=== PATIENT | female | born 2000 | race Caucasian/White ===

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

== ENCOUNTER → 2018-08-04 | Outpatient (CLI) | payer BC ==
[~2018-08-04] MED LIST: DEPO-PROVE400 MG/1 M IM; ZOLOFT 25MG25 MG PO
== END ==
LOC: COL.CARD 08-03 07:30
DX: R00.2 Palpitations (principal)

== ENCOUNTER → 2022-03-19 | Outpatient (CLI) | payer BC ==
[2022-03-20 16:05] LABS: LYME DISEASE ANTIBODIES Negative (Negative)
== END ==
LOC: COL.LAB 11:02
PROVIDERS: Psychiatry & Neurology Neurology
DX: E55.9 Vitamin D deficiency, unspecified (principal); E53.9 Vitamin B deficiency, unspecified; E61.1 Iron deficiency; E07.9 Disorder of thyroid, unspecified; E53.1 Pyridoxine deficiency; E53.8 Deficiency of other specified B group vitamins; E61.2 Magnesium deficiency

== ENCOUNTER → 2022-04-13 | Outpatient (CLI) | payer BC | LOC: MHCPAIN 10:22 | DX: M25.562 Pain in left knee (principal); M25.662 Stiffness of left knee, not elsewhere classified; M54.2 Cervicalgia; M79.18 Myalgia, other site; R20.2 Paresthesia of skin | CPT/HCPCS: G0463 ==

== ENCOUNTER → 2022-04-15 | Outpatient (CLI) | payer BC | LOC: MHCPAIN 12:51 | DX: M79.18 Myalgia, other site (principal); M25.512 Pain in left shoulder | CPT/HCPCS: J3301 ==

== ENCOUNTER → 2022-05-13 | Outpatient (CLI) | payer SELFPAY | LOC: MHCPAIN 10:45 | DX: M54.2 Cervicalgia (principal); R93.0 Abnormal findings on diagnostic imaging of skull and head, not elsewhere classified; G54.0 Brachial plexus disorders; G56.22 Lesion of ulnar nerve, left upper limb | CPT/HCPCS: G0463 ==

== ENCOUNTER → 2023-03-01 | Outpatient (CLI) | payer OTHER ==
[~2023-03-01] MED LIST changes: +Lidocaine PF 1% (10 MG/ML) 5 ML VIAL ONE
== END ==
LOC: MHCPAIN 10:37
DX: M79.18 Myalgia, other site (principal)

== ENCOUNTER → 2023-06-28 | Outpatient (CLI) | payer OTHER ==
[~2023-06-28] MED LIST changes: -Lidocaine PF 1% (10 MG/ML) 5 ML VIAL ONE
== END ==
LOC: MHCPAIN 12:58
DX: M79.18 Myalgia, other site (principal); M54.2 Cervicalgia; G54.0 Brachial plexus disorders
CPT/HCPCS: G0463